=== PATIENT | female | born 1940 | race Caucasian/White ===

== ENCOUNTER 2017-06-15 08:30 | Inpatient (IN) ==
[2017-06-20] MEDS ORDERED: NOZIN NASAL SWAB NAS ONE ×2 (13:25→18:32)
[2017-06-20] MEDS ORDERED: SALINE FLUSH 10ml SYRINGE IV PRN (13:25)
[2017-06-20] MEDS ORDERED: LIDOCAINE 1% (10mg/ml) 2mL INJ PF SDV ID ONE (13:25)
[2017-06-20] MEDS ORDERED: CEFAZOLIN 1 G INJECTION IVP ONE (13:29)
[2017-06-20 13:41] VITALS: BMI 30.2
[2017-06-20] MEDS: LR 1,000 ML IV SCH ×2 (13:51→15:50)
[2017-06-20] MEDS ORDERED: BUPIVACAINE 0.25% (2.5mg/ml) PF 30ml INJECTION ONE (14:49)
[2017-06-20] MEDS ORDERED: LIDOCAINE 1% (10mg/ml) 30ml SDV INJ ONE (14:49)
--- NOTE | 2017-06-20 14:50 | Anesthesia Preoperative Report ---
Anesthesia Preoperative Record - Date and Time Date: 06/20/17 Preoperative Diagnosis: Lt elbow fracture,S52.122A Proposed Procedure: orif elbow NPO Since Date: 06/20/17 NPO Since Time: 05:00 Allergies/Adverse Reactions: Allergies Allergy/AdvReac Type Severity Reaction Status Date / Time No Known Drug Allergies Allergy Unknown Verified 06/20/17 13:41 - Vital Signs Vital Signs: Temperature 98.3 F 06/20/17 13:40 Pulse Rate 63 06/20/17 13:40 Respiratory Rate 13 06/20/17 13:40 Blood Pressure 160/70 H 06/20/17 13:40 Pulse Oximetry 95 06/20/17 13:40 Height and Weight: Height 1.68 m Weight 84.8 kg Body Mass Index 30.2 - Medications Inpatient Medications: Current Medications Lactated Ringer's (Lactated Ringers) 1,000 mls @ 50 mls/hr IV .Q20H QUIANA Last Admin: 06/20/17 13:51 Dose: 50 mls/hr Sodium Chloride (Iv Flush) 10 ml IV PRN PRN PRN Reason: Flushing Home Medications: Home Medications Medication Instructions Recorded Confirmed Type Levothyroxine Sodium [Synthroid] 25 mcg PO DAILY #0 05/11/12 06/20/17 History Simvastatin 40 mg PO HS #0 tab 08/27/13 06/20/17 History Amlodipine Besylate/Benazepril 1 tab PO DAILY #0 11/28/14 06/20/17 History [Amlodipine-Benazepril 5-20 mg] Leflunomide 20 mg PO HS #0 12/02/14 06/20/17 History lutein 6 mg tablet 6 mg PO DAILY tab 06/13/17 06/20/17 History omega-3 fatty acids 1,000 mg 1,000 mg PO DAILY cap 06/13/17 06/20/17 History capsule Acetaminophen [Tylenol] 325 - 650 mg PO Q5H PRN 06/14/17 06/20/17 History CALCIUM CARBONATE Chewable [Tums] 1 tab PO Q2H PRN 06/14/17 06/20/17 History Carboxymethylcellulose Sodium 1 drop EACH EYE BID PRN 06/14/17 06/20/17 History [Thera Tears] Metoprolol Tartrate [Lopressor] 25 mg PO WB 06/14/17 06/20/17 History Multivitamin/Iron/Folic Acid 1 each PO DAILY 06/14/17 06/20/17 History [Centrum Complete Multivit Tab] Is Patient on Beta Macy?: Yes - Medical History Respiratory: Reports: Pneumonia (hx of) DENIES: Sleep Apnea Cardiovascular: Reports: Hypertension, High Cholesterol Gastrointestional: Reports: Gastroesophageal Reflux Disease, Hiatal Hernia (hx of), Other (sensitive stomach) Neuro/Musculoskeletal: Reports: Other (fractured left elbow currently) Renal/Endocrine: Reports: Thyroid Disease Other History: Reports: Blood Transfusions (maybe with hysterectomy) - Surgical History HEENT Surgeries: Reports: Eye Surgery (Victor M cataract ext with IOL implants) Cardiac Surgeries/Treatments: Reports: Cardiac Catheterization, Pacemaker (2014) GI Surgery/Treatments: Reports: Appendectomy, Hernia Repair (hiatal hernia repair), Colonoscopy, EGD Musculoskeletal Surgery/Tx: Reports: Orthopedic Surgery (bilateral bunionectomy) Reproductive Surgery/Treatment: Reports: Hysterectomy Anesthesia Reactions: None Hx Family Anesthesia Reaction: No History of Motion Sickness: No - Social History Smoking Status: Never smoker Hx Chewing Tobacco Use: No Second Hand Exposure: No Time spent discussing smoking cessation with patient: 3 to 10 minutes Substance Use Type: does not use Alcohol Intake Frequency: does not drink - Pertinent Findings Laboratory: CBC and BMP 06/20/17 13:32 EKG: Sinus Rhythm Paced: 50% - Physical Exam Respiratory Exam: Present: lungs clear Cardiovascular Exam: Present: regular rate and rhythm, no murmur - Airway Assessment Mallampati Score: II TMD: 3 Fingerbreadths Neck Extension: good Teeth: chipped teeth/crowns Overall Assessment: no airway concerns - ASA ASA Score: 3 - Plan Anesthesia: General Inhalation Gases - Discussion Discussion: Discussed risks/options/alternatives of anesthesia and questions answered. Patient consents. Nursing pain assessment noted. Present for Discussion: spouse Attestation Statement: Prior to the delivery of any anesthetic medication, I examined the patient, developed the plan, obtained the patient's consent and discussed the risk and benefits of the procedure with the patient/guardian. - Additional Information Seen by Anesthesia: Yes
[2017-06-20] MEDS ORDERED: FentaNYL 100 MCG/2 ML INJECTION ONE ×2 (15:19→15:49)
[2017-06-20] MEDS ORDERED: KETAMINE 500 MG/10 ML INJECTION ONE (15:20)
[2017-06-20] MEDS ORDERED: LIDOCAINE 2% JELLY Tube 30ml ONE (15:21)
[2017-06-20] MEDS ORDERED: ONDANSETRON 4 MG/2 ML INJECTION ONE (15:32)
[2017-06-20] MEDS ORDERED: DEXAMETHASONE 4 MG/ML INJECTION ONE (15:32)
[2017-06-20] MEDS ORDERED: BUPIV 0.25% 30ml/LIDO 1% 30ml MIXTURE ID ONE (15:56)
[2017-06-20] MEDS ORDERED: METOCLOPRAMIDE 10mg/2ml INJECTION IVP PRN (17:06)
[2017-06-20] MEDS ORDERED: ONDANSETRON 4 MG/2 ML INJECTION IVP PRN ×2 (17:06→18:32)
[2017-06-20] MEDS: HYDROMORPHONE 2 MG/ML INJECTION IVP PRN ×3 (17:35→18:00)
--- NOTE | 2017-06-20 17:52 | Anesthesia Postoperative Note ---
- Date and Time Date: 06/20/17 Time: 17:50 - Status Patient Participated in Evaluation: Patient Participated in Person Vital Signs: Temperature 98.8 F 06/20/17 17:23 Pulse Rate 87 06/20/17 17:23 Respiratory Rate 12 06/20/17 17:23 Blood Pressure 208/98 H 06/20/17 17:23 Pulse Oximetry 91 06/20/17 17:23 Respiratory Function: Airway Patent, Regular Respirations Cardiovascular Function: Regular Pulse Mental Status: Alert and Oriented Pain Intensity: 5 (tolerable) Hydration: IV Infusing Complications During Recover: None Apparent - Follow-Up Instructions Instructions: Per Surgeon
[2017-06-20] MEDS ORDERED: LABETALOL 100mg/20ml INJECTION IVP ONE (18:01)
[2017-06-20] MEDS ORDERED: ACETAMINOPHEN 325 MG TABLET PO PRN (18:32)
[2017-06-20] MEDS ORDERED: CALCIUM CARBONATE Chewable 500mg TABLET PO PRN (18:32)
[2017-06-20] MEDS ORDERED: SENNA + DOCUSATE TABLET PO PRN (18:32)
[2017-06-20] MEDS ORDERED: REFRESH CLASSIC Eye Drops 0.4ml EACH EYE PRN (18:36)
[2017-06-20] MEDS: NS 1,000 ML IV SCH (19:54)
[2017-06-20] MEDS: NOZIN NASAL SWAB NAS SCH (19:54)
[2017-06-20] MEDS: HYDROCODONE/APAP 7.5 MG/325 MG TABLET PO PRN ×2 (20:14→22:41)
[2017-06-20] MEDS ORDERED: LEFLUNOMIDE 10 MG TABLET PO SCH (21:00)
[2017-06-20] MEDS ORDERED: SIMVASTATIN 40 MG TABLET PO SCH (21:00)
[2017-06-20] MEDS: ASPIRIN 81 MG CHEWABLE TABLET PO SCH (22:40)
[2017-06-20] MEDS: CEFAZOLIN 2 G in NS 100 ML IV SCH (22:41)
--- NOTE | 2017-06-20 23:10 | Consult Note ---
<Oskar Rojas P - Last Filed: 06/20/17 23:07> Consult Information - Data of Consult Consult date: 06/20/17 Requesting Physician: Alex Davis MD Primary Care Provider: Remigio Nichols II, MD Family Provider: Remigio Nichols II, MD - Consult Narrative Reason for consult: Hypertension History of present illness: Please note that the patient was seen via telemedicine with nursing assistance on 06/20/2017 Ms. Landers is a pleasant 76yo woman with h/o HTN, hypothyroidism, dyslipidemia, pacemaker, but no CAD or CVA or DM2. She had a nonsyncopal fall a week ago with L elbow fx surgery today after cardiology clearance preop. BP as high as 200 systolic with no chest pain or sob. Pain in elbow 11/01. IV labetalol in PACU and metoprolol 12.5mg PO given thusfar. Patient held her Lotrel this AM it is noted. No headache. Feels better than she expected at this point. [facility] Patient Stated Medical History Hypertension Yes Pneumonia Yes: hx of Sleep Apnea No Gastroesophageal Reflux Yes Disease Hiatal Hernia Yes: hx of Other GI Yes: sensitive stomach Anemia Yes: before hysterectomy Other Musculoskeletal Yes: fractured left elbow currently Blood Transfusions Yes: maybe with hysterectomy Clinic Medical History (Last Reviewed 06/13/17 @ 15:20 by Alex Davis MD) HTN (hypertension) (Acute Medical) High cholesterol (Acute Medical) Pacemaker (Acute Medical) Thyroid disease (Acute Medical) Surgical History: hysterectomy; double bunion; pacemaker-2014; hiatal hernia repair; colonoscopy Family History: Family History (Last Reviewed 06/13/17 @ 15:20 by Alex Davis MD) Mother Cancer Father Heart attack - Social History Smoking status: Never smoker Substance use type: does not use Does patient use chewing tobacco?: No Review of Systems All systems PM: 10-point ROS was reviewed, no additional remarkable complaints except Medications Home Medications Medication Instructions Recorded Confirmed Type Levothyroxine Sodium [Synthroid] 25 mcg PO DAILY #0 05/11/12 06/20/17 History Simvastatin 40 mg PO HS #0 tab 08/27/13 06/20/17 History Amlodipine Besylate/Benazepril 1 tab PO DAILY #0 11/28/14 06/20/17 History [Amlodipine-Benazepril 5-20 mg] Leflunomide 20 mg PO HS #0 12/02/14 06/20/17 History lutein 6 mg tablet 6 mg PO DAILY tab 06/13/17 06/20/17 History omega-3 fatty acids 1,000 mg 1,000 mg PO DAILY cap 06/13/17 06/20/17 History capsule Acetaminophen [Tylenol] 325 - 650 mg PO Q5H PRN 06/14/17 06/20/17 History CALCIUM CARBONATE Chewable [Tums] 1 tab PO Q2H PRN 06/14/17 06/20/17 History Carboxymethylcellulose Sodium 1 drop EACH EYE BID PRN 06/14/17 06/20/17 History [Thera Tears] Metoprolol Tartrate [Lopressor] 12.5 mg PO BID 06/14/17 06/20/17 History Multivitamin/Iron/Folic Acid 1 each PO DAILY 06/14/17 06/20/17 History [Centrum Complete Multivit Tab] Allergies Allergy/AdvReac Type Severity Reaction Status Date / Time No Known Drug Allergies Allergy Unknown Verified 06/20/17 13:41 Exam Vital Signs: Temperature 96.1 F L 06/20/17 18:45 Pulse Rate 84 06/20/17 19:35 Respiratory Rate 16 06/20/17 19:35 Blood Pressure 186/93 H 06/20/17 18:45 Pulse Oximetry 98 06/20/17 19:35 Telemetry Rhythm: Sinus Rhythm Height/Weight/BMI: Height 1.68 m Weight 84.8 kg Body Mass Index 30.2 - Constitutional Present: no acute distress - Routine HEENT Exam Head: Present: normocephalic Eye: Present: EOMI - Routine Respiratory Exam Absent: accessory muscle use, respiratory distress - Routine Cardiovascular Exam Present: RRR Comments: accentuated S2 and no edema - Routine Skin Exam Comments: elbow dressing in place - Routine Neurological Exam Present: alert, oriented X3 Results - Labs CBC & Chem 7: 06/20/17 13:32 Assessment and Plan (1) Essential hypertension Current visit: Yes Status: Acute (2) Elbow fracture Current visit: Yes Status: Acute (3) Dyslipidemia Current visit: Yes Status: Acute (4) Hypothyroidism Current visit: Yes Status: Acute Assessment and Plan: 1. Essential HTN, poorly controlled currently. Dose her normal lotrel and monitor with AM labs to include a COMP. Pain and periop fluid contributors. 2. Elbow fx s/p surgery--pain regimen reviewed, start vitamin D. 3. Hypothyroidism with no new symptoms or dose. 4. s/p pacemaker 5. Dyslipidemia on statin. 6. Class 1 obesity BMI 30.2 Hospital Course Summary Disclaimer: The visit summary below is not to be considered part of the above Progress Note. <KishorSara - Last Filed: 06/21/17 10:37> Consult Information - Data of Consult Requesting Physician: Alex Davis MD Primary Care Provider: Remigio Nichols II, MD Family Provider: Remigio Nichols II, MD [facility] Patient Stated Medical History Hypertension Yes Pneumonia Yes: hx of Sleep Apnea No Gastroesophageal Reflux Yes Disease Hiatal Hernia Yes: hx of Other GI Yes: sensitive stomach Anemia Yes: before hysterectomy Other Musculoskeletal Yes: fractured left elbow currently Blood Transfusions Yes: maybe with hysterectomy Clinic Medical History (Last Reviewed 06/13/17 @ 15:20 by Alex Davis MD) Essential hypertension (Acute Medical) Elbow fracture (Acute Medical) Dyslipidemia (Acute Medical) Hypothyroidism (Acute Medical) HTN (hypertension) (Acute Medical) High cholesterol (Acute Medical) Pacemaker (Acute Medical) Thyroid disease (Acute Medical) Family History: Family History (Last Reviewed 06/13/17 @ 15:20 by Alex Davis MD) Mother Cancer Father Heart attack Exam Vital Signs: Temperature 97.4 F 06/21/17 07:43 Pulse Rate 62 06/21/17 10:02 Respiratory Rate 16 06/21/17 07:43 Blood Pressure 143/72 H 06/21/17 10:02 Pulse Oximetry 95 06/21/17 10:02 Height/Weight/BMI: Height 1.68 m Weight 86.9 kg Body Mass Index 30.2 Results - Labs CBC & Chem 7: 06/21/17 04:19 06/21/17 04:19 Assessment and Plan (1) Essential hypertension Current visit: Yes Status: Acute (2) Elbow fracture Current visit: Yes Status: Acute (3) Dyslipidemia Current visit: Yes Status: Acute (4) Hypothyroidism Current visit: Yes Status: Acute Assessment and Plan: 06/21/2017-Dr. Iverson I seen and examined the patient. I have reviewed the H&P above and agree. Please see my additions below. Chief complaint: Elevated blood pressure postoperatively History of present illness: Patient is a very pleasant 76-year-old female with history of hypertension. She fell one week ago and suffered a left elbow fracture. She obtained cardiology clearance from Dr. Ingram preoperatively yesterday. Postoperatively, the patient did have elevated blood pressure. She is normally on Lopressor 12.5 mg by mouth twice a day which she did take yesterday morning. She is also on amlodipine but has a profile 5/20 once daily in the mornings which she did not take yesterday morning before surgery. Postoperatively her blood pressure was as high as 200 systolic. The patient was given IV labetalol in PACU and the hospitalist service was consulted last night. The patient received her evening dose of Lopressor and was given her amlodipine benazepril dose last evening. This morning, blood pressures are normal at 143/72. The patient had a mild headache last night in PACU but it quickly resolved. She denies any chest pains or shortness of breath. She denies any palpitations. She is eating and drinking well. She did walk with physical therapy and was cleared to go home. Comprehensive review of systems is negative other than the above in history of present illness. Past medical history is reviewed. I agree with the addition of rheumatoid arthritis which is currently well controlled. Surgical history is reviewed and agree. Family history is reviewed and agree. Social history is reviewed and agree. Medications and allergies are reviewed. Physical exam: The patient is alert and oriented 3 and in no acute distress. Sclerae anicteric. Oropharynx is moist. Neck is supple. Chest is clear to auscultation. Cardiovascular reveals a regular rate and rhythm without murmur. Abdomen is soft and nontender. Extremities are free of edema. Left arm is in a sling. Skin is warm and dry and without rashes. Lab is reviewed. Comp printed metabolic profile is essentially normal other than glucose of 140. Hemoglobin is 10.5 postoperatively. Impression Essential hypertension with elevated blood pressure postoperatively likely secondary to not receiving her Norvasc benazepril yesterday morning with the addition of pain. Blood pressure is normalized today on her usual medications. History of pacemaker placement Hyperlipidemia Hypothyroidism Rheumatoid arthritis Plan The patient did have clearance for surgery yesterday by Dr. Ingram. Patient should keep her follow-up appointment as scheduled. We'll have the patient resume her usual home medications. We'll have her take amlodipine/benazepril in the evenings instead of the mornings. Next dose will be tonight. Okay for discharge from my standpoint. Hospital Course Summary Disclaimer: The visit summary below is not to be considered part of the above Progress Note.
[2017-06-20] MEDS: AMLODIPINE/BENAZEPRIL 5mg/20mg CAPSULE PO SCH (23:32)
[2017-06-20] MEDS: MORPHINE SULFATE 4mg INJECTION IVP PRN (23:51)
[2017-06-21] MEDS: MORPHINE SULFATE 4mg INJECTION IVP PRN (03:25)
[2017-06-21] MEDS: NOZIN NASAL SWAB NAS SCH ×2 (03:31→11:34)
[2017-06-21 03:37] VITALS: RESP 16
[2017-06-21] MEDS: HYDROCODONE/APAP 7.5 MG/325 MG TABLET PO PRN (05:50)
[2017-06-21] MEDS: CEFAZOLIN 2 G in NS 100 ML IV SCH (06:00)
[2017-06-21] MEDS ORDERED: LEVOTHYROXINE 25 MCG TABLET PO SCH (06:30)
[2017-06-21] MEDS: NS 1,000 ML IV SCH (07:40)
[2017-06-21 07:43] VITALS: TEMP 97.4
--- NOTE | 2017-06-21 07:52 | Orthopedic Progress Note ---
Date: Subjective/Severity of Illness: Hailee is doing well this AM. Her blood pressure is down to 158/76. The hospitalist telemedicine was consulted last night when her systolic got up to 208. She denies headache, change in vision or hearing, chest pain, palpitations , shortness of breath or sense of weakness. She states her systolic BP is typically about in the 150's. Orthopedic Objective PO Vital signs: Temperature 97.4 F 06/21/17 07:43 Pulse Rate 66 06/21/17 07:43 Respiratory Rate 16 06/21/17 07:43 Blood Pressure 155/71 H 06/21/17 07:43 Pulse Oximetry 93 06/21/17 07:43 Height and Weight: Height 5 ft 6 in Weight 186 lb 15.232 oz Body Mass Index 30.2 - Constitutional General Appearance: Present: alert, orientated x3, no acute distress - Respiratory Exam Present: non-labored - Cardiovascular Exam Present: pedal pulses intact Capillary Refill: < 2-3 Seconds - Abdominal Exam Present: soft. Absent: tenderness - Extremities Exam Extremities: Present: pulses intact Comments: she is able to flex/extend her fingers and wrist. Splint is fitting well. - Surgical Site Incision: dressing intact, no drainage - Integumentary Exam Present: pink, warm, dry - Lymphatic Lymphatic: Absent: lymphedema - Neurological Exam Present: intact to light touch, no deficits - Psychiatric Exam Present: normal affect - Labs Result Diagrams: 06/21/17 04:19 06/21/17 04:19 Abnormal lab results 06/20/17 06/21/17 06/21/17 Range/Units 13:32 04:19 04:19 RBC 3.86 L 3.51 L (4.00-5.20) M/MM3 Hgb 11.6 L 10.5 L (12-16) GM/DL Hct 32.5 L (36-46) % MPV 9.0 L (9.4-12.4) UM3 Neut % (Auto) 77.7 H (33-66) % Lymph % (Auto) 18.1 L (23-45) % Eos % (Auto) 10.8 H (0-4) % Eos # (Auto) 0.7 H (0-0.5) T/MM3 Glucose 140 H (65-110) MG/DL H & H 06/20/17 06/21/17 Range/Units 13:32 04:19 Hgb 11.6 L 10.5 L (12-16) GM/DL Hct 36.0 32.5 L (36-46) % Orthopedic Assessment and Plan (1) Dyslipidemia Status: Acute (2) Elbow fracture Status: Acute Assessment and Plan: continue with splint, mobilize with PT, follow up as already scheduled with Dr. Davis or [facility] Donahue Orthopaedically ready for discharge once hospitalist approves. (3) Essential hypertension Status: Acute Assessment and Plan: as per hospitalist (4) Hypothyroidism Status: Acute Hospital Course Summary Disclaimer: The visit summary below is not to be considered part of the above Progress Note.
[2017-06-21] MEDS: ASPIRIN 81 MG CHEWABLE TABLET PO SCH (08:18)
[2017-06-21] MEDS: AMLODIPINE/BENAZEPRIL 5mg/20mg CAPSULE PO SCH (08:19)
--- NOTE | 2017-06-21 08:31 | Operative Note ---
DATE OF PROCEDURE 06/20/2017 PREOPERATIVE DIAGNOSES 1. Left radial head fracture. 2. Left coronoid fracture. 3. Left ulnar collateral ligament rupture. POSTOPERATIVE DIAGNOSES 1. Left radial head fracture. 2. Left coronoid fracture. 3. Left ulnar collateral ligament rupture. PROCEDURE 1. Left radial head replacement. 2. Left ulnar collateral ligament repair. SURGEON Alex Davis MD [employer] EMILIE Shell COMPLICATIONS None. ANESTHESIA General with LMA and local anesthetic. EBL AND FLUIDS AND TOURNIQUET TIME Please see Anesthetic records. DESCRIPTION OF PROCEDURE Mrs. Landers and her left elbow were identified and marked in the preoperative holding area. She was brought back to the operating suite and placed supine on the operating table. She was placed under general anesthesia and LMA was placed. The left upper extremity was then prepped and draped in my normal sterile fashion. Time-out was performed. On examination under anesthesia of her elbow she did feel unstable. This was confirmed with x-ray showing a non- concentrically reduced ulnohumeral joint with obvious fracture of the radial head as expected. The arm was exsanguinated and the tourniquet inflated to 250 mmHg. A lateral approach of Mane was performed.. Sharp dissection was carried through the skin. Blunt dissection was carried down to the muscle fascia. At this point I did see an obvious rupture of the LCL tendon which is why it was in the surgical field. Approach was then continued through this rupture. The extensor musculature were retracted anteriorly as the forearm was kept in pronation to protect the PIN nerve. The radial head main fragment was easily identified and removed. This second fragment was actually dislodged medially but was able to be recovered. The head was reconstructed at the back table to ensure we had all pieces and also for sizing purposes. We sized it at a 22. At this point it was noted there was coronoid fracture. It was too small to be repaired. The wound was thoroughly irrigated. I then prepared the canal with broaching to size 7. We trialed with a size 7 x 26 stem and a 22 x 10 head after the fracture site was freshened up with a saw blade. With this, she was well reduced as long as she was maintained in flexion. The radial head sizing looked good. It did not appear to be overstuffed and did not show any compression of the medial ulnohumeral joint. The trial was then removed and again the canal was prepared. We selected a 7 Press-Fit stem and when this was placed it did not feel to have good press-fit, so I decided to proceed with cementing it. Cement was mixed on the back table and the stem was cemented into place. The head was then placed which, again, was a 22 x 10 mm and the set screw was placed. The head was placed into a reduced position. It seemed to align well with the capitellum in all views and this was held while the cement had hardened. I then thoroughly irrigated the joint and repaired the LCL tendon with #2 FiberWire. This was done x 2. After the second one was placed, the elbow did appear stable with range of motion clinically as well fluoroscopically. The ulnar humeral joint was concentric throughout range of motion. The wound was thoroughly irrigated one last time. The annular ligament was repaired with #1 Vicryl. Subcutaneous tissue was then repaired with 2-0 Vicryl. The skin was closed with a running 4-0 nylon. Sterile dressings were placed followed by a well-padded posterior slab splint. Before skin closure the tourniquet was let down. Hemostasis was obtained with electrocautery. She was then allowed to awaken from general anesthesia and once extubated she was able to give me a thumbs up before being taken back to the Recovery Room under the care of Anesthesia. She tolerated the procedure well and there were no complications. ROBERT
[2017-06-21] MEDS ORDERED: OMEGA-3 ACID ESTERS 1 GM CAPSULE PO SCH (09:00)
[2017-06-21] MEDS ORDERED: AMLODIPINE/BENAZEPRIL 5mg/20mg CAPSULE PO SCH (09:00)
[2017-06-21] MEDS ORDERED: ERGOCALCIFEROL 50,000 UNIT CAPSULE PO SCH (09:00)
[2017-06-21 10:02] VITALS: BP 143/72; PULSE 62; O2SAT 95
--- NOTE | 2017-06-21 10:55 | Remote Fluorsocopy Report ---
Indication: LT RADIAL HEAD REPLACEMENT PROCEDURE: RF elbow LT 3 view: Encounter: Initial Comparison: Elbow radiograph dated June 13, 2017 Findings: Seven fluoroscopic spot images show excision of the radial head and placement of a radial head prosthesis which appears appropriately positioned. Impression: Fluoroscopy as above. Fluoroscopy time is 75 seconds. Fluoroscopy dose is 404.4 mRad. .
== END 2017-06-21 11:20 | disposition home or self-care (01) | DRG 502 ==
LOC: SRG 06-20 13:02
PROVIDERS: ADMIT Orthopaedic Surgery; ATTEND Orthopaedic Surgery